=== PATIENT | male | born 1985 | race Caucasian/White ===

== ENCOUNTER 2019-09-19 13:22 | Emergency (ER) | payer BC ==
[2019-09-19] MEDS ORDERED: KETOROLAC 30 MG/ML INJ ONE (13:33)
[2019-09-19] MEDS ORDERED: NA CHLORIDE 0.9% 1,000 ML ONE (13:34)
[2019-09-19] MEDS ORDERED: ONDANSETRON 4 MG/2 ML VIAL ONE (13:34)
[2019-09-19 13:56] LABS: Absolute Lymphocytes (CBC) 2.5 K/uL (0.7-4.9); Basophils % 0.4 % (0-1.3); Hematocrit 44.5 % (39.6-49.0); Lymphocytes % 26.4 % (15.3-44.8); MPV 8.5 fL (7.6-11.3)
[2019-09-19] MEDS ORDERED: MORPHINE 4 MG/ML SYR ONE ×2 (13:59→14:58)
[2019-09-19 14:06] LABS: Albumin 3.9 g/dL (3.4-5.0); Bilirubin Direct 0.1 mg/dL (0-0.2); Bilirubin Total 0.3 mg/dL (0.2-1.0); Potassium 3.7 mmol/L (3.5-5.1)
--- NOTE | 2019-09-19 14:39 | RAD REPORT ---
EXAM DESCRIPTION: CT - Stone Protocol - 09/19/2019 2:12 pm CLINICAL HISTORY: Abdominal pain. COMPARISON: None. TECHNIQUE: Computed axial tomography of the abdomen pelvis was obtained without oral or IV contrast. Lack of IV and oral contrast limits evaluation of solid organs, bowel, and vessels. Coronal reformat lacho images were obtained and reviewed. All CT scans are performed using dose optimization technique as appropriate and may include automated exposure control or mA/KV adjustment according to patient size. FINDINGS: Tiny bilateral renal calculi. Mild right hydronephrosis. A ureteral calculus is not seen. However there is 2 millimeter calculus within the right posterior bladder The liver, spleen, pancreas and adrenals appear grossly normal There is no evidence of diverticulitis. The appendix appears normal. Small hiatal hernia Small right inguinal hernia. Moderate left inguinal hernia contains fat IMPRESSION: A 2 millimeter calculus within the right posterior bladder probably has recently passed from the right ureter. There is mild right hydronephrosis
[2019-09-19] MEDS ORDERED: TAMSULOSIN 0.4 MG SR CAP ONE (14:59)
[2019-09-19] MEDS ORDERED: MAGNESIUM SULFATE 1 gm IVPB 1 GM/100 ML BAG IV ONE (14:59)
[2019-09-19 15:24] LABS: Urine Bacteria <20 /HPF (NONE SEEN); Urine Culture Reflex Order NOT NEEDED; Urine Mucus LIGHT /HPF (NONE SEEN); Urine RBC <5 /HPF (NONE SEEN)
--- NOTE | 2019-09-19 16:06 | EDPHYS ---
Physician Documentation [facility] Name: Trung Owen Age: 34 yrs Sex: Male : 1985 Arrival Date: 09/19/2019 Time: 13:30 Bed 6 Private MD: ED Physician Ernie Gomes HPI: 09/18 13:40 This 34 yrs old Male presents to ER via EMS with complaints of Abdominal Pain.cp Historical: - Allergies: 13:36 No Known Allergies; aa5 - Home Meds: 13:36 None [Active]; aa5 - PMHx: 13:36 None; aa5 - PSHx: 13:36 None; aa5 - Immunization history:: Flu vaccine is not up to date. - Social history:: Smoking status: Patient/guardian denies using tobacco. Vital Signs: 13:33 BP 177 / 88; Pulse 80; Resp 24 S; Temp 97.0(TE); Pulse Ox 100% on R/A; Weight 86.18 kg aa5 (R); Height 5 ft. 8 in. (172.72 cm) (R); Pain 9/10; 13:45 BP 168 / 97; Pulse 66; Resp 20 S; Pulse Ox 100% on R/A; Pain 8/10; aa5 14:32 Temp 97.7(O); aa5 15:19 BP 126 / 80; Pulse 60; Resp 15; Pulse Ox 97% ; hb 16:30 BP 108 / 60; Pulse 60; Resp 18 S; Temp 97.6(O); Pulse Ox 97% on R/A; Pain 4/10; aa5 13:33 Body Mass Index 28.89 (86.18 kg, 172.72 cm) aa5 MDM: 13:52 Patient medically screened. 09/18 13:33 Order name: Basic Metabolic Panel; Complete Time: 14:51 aa5 09/18 14:51 Interpretation: Normal except: GLUC 161; BUN 21; CRE 1.37; GFR 59. cp 09/18 13:33 Order name: CBC with Diff; Complete Time: 14:51 aa5 09/18 15:20 Interpretation: Reviewed. 09/18 13:33 Order name: Creatinine for Radiology; Complete Time: 14:51 aa5 09/18 13:33 Order name: Hepatic Function; Complete Time: 14:51 [facility] 09/18 15:20 Interpretation: Normal except: GLOB 4.1; A/G 1.0. cp 09/18 13:33 Order name: Lipase; Complete Time: 14:51 aa 09/18 13:53 Order name: Urine Microscopic Only; Complete Time: 15:32 cp 09/18 15:33 Interpretation: Reviewed. 09/18 14:01 Order name: CT Stone Protocol; Complete Time: 14:53 cp 09/18 13:33 Order name: IV Saline Lock; Complete Time: 13:34 aa 09/18 13:33 Order name: Labs collected and sent; Complete Time: 13:34 [facility] 09/18 13:53 Order name: Urine Dipstick-Ancillary (obtain specimen); Complete Time: 15:04 cp 09/18 14:52 Order name: Urine Strainer; Complete Time: 15:03 cp 09/18 15:19 Order name: PO challenge; Complete Time: 15:22 cp Administered Medications: 13:34 Drug: TORadol 30 mg Route: IVP; Site: right antecubital; aa5 13:45 Follow up: Response: No adverse reaction; Pain is decreased aa5 13:34 Drug: Zofran (Ondansetron) 4 mg Route: IVP; Site: right antecubital; aa5 13:45 Follow up: Response: No adverse reaction aa5 14:00 Drug: morphine 4 mg Route: IVP; Site: right antecubital; aa5 14:05 Follow up: Response: No adverse reaction aa5 14:00 Drug: NS 0.9% 1000 ml Route: IV; Rate: 1 bolus; Site: right antecubital; aa5 14:55 Drug: morphine 4 mg Route: IVP; Site: right antecubital; aa5 15:22 Follow up: Response: No adverse reaction; Pain is decreased aa5 14:56 Drug: Magnesium Sulfate 1 grams Route: IVPB; Infused Over: 1 hrs; Site: right aa5 antecubital; 16:00 Follow up: Response: No adverse reaction; IV Status: Completed infusion aa5 14:56 Drug: Flomax 0.4 mg Route: PO; aa5 15:22 Follow up: Response: No adverse reaction aa5 16:53 Drug: HYDROcodone-acetaminophen (5 mg-500 mg) 1 tabs Route: PO; hb 16:54 Follow up: Response: Medication administered at discharge. hb Disposition: 09/19/19 16:05 Discharged to Home. Impression: Unspecified renal colic - right, Calculus of lower urinary tract, unspecified. - Condition is Stable. - Discharge Instructions: Kidney Stones, Renal Colic. - Prescriptions for Zofran 4 mg Oral Tablet - take 1 tablet by ORAL route every 12 hours As needed; 20 tablet. Flomax 0.4 mg Oral Capsule, Sust. Release 24 hr - take 1 capsule by ORAL route once daily As needed 1/2 hour following the same meal each day; 5 capsule. Tramadol 50 mg Oral Tablet - take 1 tablet by ORAL route every 8 hours as needed; 15 tablet. - Work release form, Medication Reconciliation Form, Thank You Letter, Antibiotic Education, Prescription Opioid Use form. - Follow up: Nacho Palencia MD; When: 2 - 3 days; Reason: pain continues. - Problem is new. - Symptoms have improved. Addendum: 09/21/2019 13:56 Co-signature as Attending Physician, Ernie Gomes MD I agree with the assessment and k dr plan of care. Signatures: Dispatcher [employer] EDMS Ernie Gomes MD MD kdr Kirsty Blanco RN RN aa5 Luis Eduardo Keith PA PA Lexi Pacheco, RN RN Corrections: (The following items were deleted from the chart) 09/18 16:58 16:05 09/19/2019 16:05 Discharged to Home. Impression: Unspecified renal colic - right; aa5 Calculus of lower urinary tract, unspecified. Condition is Stable. Forms are Medication Reconciliation Form, Thank You Letter, Antibiotic Education, Prescription Opioid Use. Follow up: Nacho Palencia; When: 2 - 3 days; Reason: pain continues. Problem is new. Symptoms have improved. cp
--- NOTE | 2019-09-19 16:06 | ER ---
Nurse's Notes [facility] Name: Trung Owen Age: 34 yrs Sex: Male : 1985 Arrival Date: 09/19/2019 Time: 13:30 Bed 6 Private MD: Diagnosis: Unspecified renal colic-right;Calculus of lower urinary tract, unspecified Presentation: 09/18 13:30 Coronavirus screen: Patient denies fever greater than 100.4F, cough, shortness of aa5 breath, or difficulty breathing. Proceed with normal triage process. Ebola Screen: Patient negative for fever greater than or equal to 101.5 degrees Fahrenheit, and additional compatible Ebola Virus Disease symptoms. 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 aa5 Pt states "I was just having a bowel movement when the pain started". 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 Initial Sepsis Screen: Does the patient meet any 2 criteria? RR > 20 per min. Does the patient have a suspected source of infection? Yes: Acute abdominal pain. Risk Assessment: Do you want to hurt yourself or someone else? Patient reports no desire to harm self or others. Care prior to arrival: None. 13:30 Acuity: HELADIO 3 aa5 Historical: - Allergies: 13:36 No Known Allergies; aa5 - Home Meds: 13:36 None [Active]; aa5 - PMHx: 13:36 None; aa5 - PSHx: 13:36 None; aa5 - Immunization history:: Flu vaccine is not up to date. - Social history:: Smoking status: Patient/guardian denies using tobacco. Screenin:40 Abuse screen: Denies threats or abuse. Nutritional screening: No deficits noted. aa5 Tuberculosis screening: No symptoms or risk factors identified. Fall Risk IV access (20 points). Total Villasenor Fall Scale indicates No Risk (0-24 pts). Assessment: 13:30 General: Appears uncomfortable, Behavior is calm, cooperative. Pain: Complains of pain aa5 in right lower quadrant Pain does not radiate. Pain currently is 9 out of 10 on a pain scale. Quality of pain is described as sharp, Pain began 30 min ago. Is continuous. Neuro: Level of Consciousness is awake, alert, obeys commands, Oriented to person, place, time, situation. Cardiovascular: Heart tones S1 S2 present Rhythm is regular. Respiratory: Airway is patent Respiratory effort is even, unlabored, Respiratory pattern is regular, symmetrical, Breath sounds are clear bilaterally. GI: Abdomen is round non-distended, Bowel sounds present X 4 quads. Abdomen is tender to palpation in right lower quadrant. : No signs and/or symptoms were reported regarding the genitourinary system. EENT: No signs and/or symptoms were reported regarding the EENT system. Derm: Skin is pink, warm \\T\\ dry. Musculoskeletal: Range of motion: intact in all extremities. 13:45 Reassessment: Patient is alert, oriented x 3, equal unlabored respirations, skin aa5 warm/dry/pink. Pt states "I feel a little better". 14:08 Reassessment: Pt taken to CT via stretcher . aa5 14:25 Reassessment: Patient is alert, oriented x 3, equal unlabored respirations, skin aa5 warm/dry/pink. Patient states symptoms have improved. Pain: Pain currently is 3 out of 10 on a pain scale. 14:50 Reassessment: Patient is alert, oriented x 3, equal unlabored respirations, skin aa5 warm/dry/pink. Pt reports increased pain at this time, pain is 9/10, PA notified. . 15:19 Reassessment: Patient appears in no apparent distress at this time. Patient and/or hb family updated on plan of care and expected duration. Pain level reassessed. Patient is alert, oriented x 3, equal unlabored respirations, skin warm/dry/pink. 15:22 Reassessment: Patient is alert, oriented x 3, equal unlabored respirations, skin aa5 warm/dry/pink. Patient states feeling better. Patient states symptoms have improved. 15:45 Reassessment: Patient is alert, oriented x 3, equal unlabored respirations, skin aa5 warm/dry/pink. Awaiting magnesium to finish before d/c home. . Pain: Pain currently is 5 out of 10 on a pain scale. 16:00 Reassessment: Patient is alert, oriented x 3, equal unlabored respirations, skin aa5 warm/dry/pink. Awaiting on ride home. . 16:55 Reassessment: Patient is alert, oriented x 3, equal unlabored respirations, skin aa5 warm/dry/pink. Patient states feeling better. Vital Signs: 13:33 BP 177 / 88; Pulse 80; Resp 24 S; Temp 97.0(TE); Pulse Ox 100% on R/A; Weight 86.18 kg aa5 (R); Height 5 ft. 8 in. (172.72 cm) (R); Pain 9/10; 13:45 BP 168 / 97; Pulse 66; Resp 20 S; Pulse Ox 100% on R/A; Pain 8/10; aa5 14:32 Temp 97.7(O); aa5 15:19 BP 126 / 80; Pulse 60; Resp 15; Pulse Ox 97% ; hb 16:30 BP 108 / 60; Pulse 60; Resp 18 S; Temp 97.6(O); Pulse Ox 97% on R/A; Pain 4/10; aa5 13:33 Body Mass Index 28.89 (86.18 kg, 172.72 cm) aa5 ED Course: 13:30 Patient arrived in ED. am2 13:30 Patient has correct armband on for positive identification. Placed in gown. Bed in low aa5 position. Call light in reach. Side rails up X2. Pulse ox on. NIBP on. 13:30 Arm band placed on. aa5 13:33 Kirsty Blanco, RN is Primary Nurse. aa5 13:33 Inserted saline lock: 20 gauge in right antecubital area, using aseptic technique. aa5 Blood collected. 13:36 Luis Eduardo Keith PA is PHCP. cp 13:36 Ernie Gomes MD is Attending Physician. cp 13:38 Triage completed. aa5 14:14 CT Stone Protocol In Process Unspecified. EDMS 14:58 Urine collected: clean catch specimen, clear, Amount Voided: 100mL Urine Micro sent to aa5 lab. 16:04 Nacho Palencia MD is Referral Physician. cp 16:55 No provider procedures requiring assistance completed. IV discontinued, intact, aa5 bleeding controlled, No redness/swelling at site. Pressure dressing applied. Administered Medications: 13:34 Drug: TORadol 30 mg Route: IVP; Site: right antecubital; aa5 13:45 Follow up: Response: No adverse reaction; Pain is decreased aa5 13:34 Drug: Zofran (Ondansetron) 4 mg Route: IVP; Site: right antecubital; aa5 13:45 Follow up: Response: No adverse reaction aa5 14:00 Drug: morphine 4 mg Route: IVP; Site: right antecubital; aa5 14:05 Follow up: Response: No adverse reaction aa5 14:00 Drug: NS 0.9% 1000 ml Route: IV; Rate: 1 bolus; Site: right antecubital; aa5 14:55 Drug: morphine 4 mg Route: IVP; Site: right antecubital; aa5 15:22 Follow up: Response: No adverse reaction; Pain is decreased aa5 14:56 Drug: Magnesium Sulfate 1 grams Route: IVPB; Infused Over: 1 hrs; Site: right aa5 antecubital; 16:00 Follow up: Response: No adverse reaction; IV Status: Completed infusion aa5 14:56 Drug: Flomax 0.4 mg Route: PO; aa5 15:22 Follow up: Response: No adverse reaction aa5 16:53 Drug: HYDROcodone-acetaminophen (5 mg-500 mg) 1 tabs Route: PO; hb 16:54 Follow up: Response: Medication administered at discharge. hb Outcome: 16:05 Discharge ordered by MD. cp 16:55 Discharged to home ambulatory. aa5 16:55 Condition: improved 16:55 Discharge instructions given to patient, Instructed on discharge instructions, follow up and referral plans. medication usage, Demonstrated understanding of instructions, follow-up care, medications, Prescriptions given X 3. 16:58 Patient left the ED. aa5 Signatures: Dispatcher [employer] EDNV Kirsty Blanco RN RN aa5 Luis Eduardo Keith PA PA cp Lexi Pacheco RN RN Amy Gardiner am2 Corrections: (The following items were deleted from the chart) 14:33 13:33 BP 177 / 88; Pulse 80bpm; Resp 24bpm; Spontaneous; Pulse Ox 100% RA; 86.18 kg aa5 Reported; Height 5 ft. 8 in. Reported; BMI: 28.8; Pain 9/10; aa5 17:02 16:20 Reassessment: Patient is alert, oriented x 3, equal unlabored respirations, skin aa5 warm/dry/pink. Awaiting magnesium to finish before d/c home. . aa5 17:02 16:20 Pain: Pain currently is 5 out of 10 on a pain scale. aa5 aa5
[2019-09-19] MEDS ORDERED: HYDROCODONE/APAP 5/325 MG TAB ONE (16:51)
[2019-09-19 17:07] VITALS: TEMP 97.7
[2019-09-19 17:08] VITALS: BP 126/80; O2SAT 97
== END 2019-09-19 16:58 | disposition home or self-care (01) ==
LOC: ER 13:22
DX: N23 Unspecified renal colic (principal); N21.9 Calculus of lower urinary tract, unspecified
CPT/HCPCS: 96365; 85025; 80048; 36415; 80076; 81015; 83690; 76377; 74176; 96375; 99284; J3475; J7030; J2405